=== PATIENT | female | born 1985 ===

== ENCOUNTER 2024-08-28 06:53 | Day surgery (SDC) | payer BC ==
[2024-08-26 15:53] LABS: Anion Gap 6.2 mEq/L (5.0-15.0); Potassium 4.2 mEq/L (3.5-5.1)
[2024-08-28] MEDS ORDERED: propofoL 200 MG/20 ML VIAL IV ONE (07:15)
[2024-08-28] MEDS ORDERED: LIDOCAINE 1% MPF 5 ML VIAL ONE (07:15)
[2024-08-28] MEDS: Ringers Lactate 1,000 ML IV ONE (07:25)
[2024-08-28 09:16] VITALS: O2SAT 100
[2024-08-28 09:18] VITALS: BP 107/72; TEMP 97.2
== END 2024-08-28 08:36 | disposition home or self-care (01) ==
LOC: OR 06:53
PROVIDERS: ATTEND Surgery
PROC: 0DB68ZX Excision of Stomach, Via Natural or Artificial Opening Endoscopic, Diagnostic (ICD-10-PCS; 2024-08-28)
PROC: 0DB18ZX Excision of Upper Esophagus, Via Natural or Artificial Opening Endoscopic, Diagnostic (ICD-10-PCS; 2024-08-28)
PROC: 0DB48ZX Excision of Esophagogastric Junction, Via Natural or Artificial Opening Endoscopic, Diagnostic (ICD-10-PCS; 2024-08-28)
PROC: 0DB98ZX Excision of Duodenum, Via Natural or Artificial Opening Endoscopic, Diagnostic (ICD-10-PCS; principal; 2024-08-28 08:00)
DX: R10.13 Epigastric pain (principal); K29.50 Unspecified chronic gastritis without bleeding; K21.00 Gastro-esophageal reflux disease with esophagitis, without bleeding
CPT/HCPCS: 93005; 80048; 36415; 88312; 88305; 43239; J2704; J2003; J7120